=== PATIENT | male | born 1940 | race Caucasian/White ===

== ENCOUNTER → 2017-03-17 | Outpatient (CLI) | payer OTHER, MEDICARE ==
[2015-07-19 07:00] VITALS: BP 119/75
[~2017-03-17] MED LIST: ASPI-482 PO; BISO1TAB44 PO
--- NOTE | 2017-03-18 19:09 | CARD ---
APPROVED REPORT EXAM: Two-dimensional and M-mode echocardiogram with Doppler and color Doppler. Other Information Quality : Excellent INDICATION R/O Cardiomegaly 2D DIMENSIONS RVDd2.6 (2.9-3.5cm)Left Atrium(2D)4.1 (1.6-4.0cm) IVSd1.0 (0.7-1.1cm)Aortic Root(2D)3.5 (2.0-3.7cm) LVDd5.2 (3.9-5.9cm)LVOT Diameter2.2 (1.8-2.4cm) PWd1.0 (0.7-1.1cm)LVDs3.0 (2.5-4.0cm) FS (%) 30.0 %SV97.2 ml LVEF(%)60.0 (>50%) Aortic Valve AoV Peak Fernando.149.1cm/sAoV VTI38.6cm AO Peak GR.8.9mmHgLVOT Peak Fernando.114.6cm/s LVOT VTI 26.80cmAO Mean GR.5mmHg DAE (VMAX)2.16ci0IOG (VTI)2.68cm2 AI P 1/2 Vljc687xj Mitral Valve MV E Bojbothp48.7cm/sMV DECEL LAYV426om MV A Mgghnktr67.4cm/sMV RUA53ym E/A Ratio1.2MVA (PHT)2.92cm2 TDI E/Lateral E'5.7E/Medial E'7.0 Tricuspid Valve TR P. Ycmydsfz584wg/sRAP YJLGGNHV2siIx TR Peak Gr.93ipXhUQQS63pbGq Pulmonary Vein S1 Vxvqzuvo13.1cm/sD2 Mmkafgut06.8cm/s LEFT VENTRICLE The left ventricle is normal size. There is normal left ventricular wall thickness. The left ventricu lar systolic function is normal and the ejection fraction is 55-60%.. There is normal LV segmental wa ll motion. RIGHT VENTRICLE The right ventricle is normal size. The right ventricular systolic function is normal. ATRIA The left atrium is mildly dilated. The right atrium size is normal. The interatrial septum is intact with no evidence for an atrial septal defect or patent foramen ovale as noted on 2-D or Doppler imagi ng. AORTIC VALVE The aortic valve is mildly thickened but opens well. Doppler and Color Flow revealed moderate aortic regurgitation. There is no significant aortic valvular stenosis. MITRAL VALVE The mitral valve is normal in structure and function. There is no evidence of mitral valve prolapse. There is no mitral valve stenosis. Doppler and Color-flow revealed mild mitral regurgitation. TRICUSPID VALVE The tricuspid valve is normal in structure and function. Doppler and Color Flow revealed trace tricus pid regurgitation. The PA pressure was estimated at 25 mmHg. There is no tricuspid valve stenosis. PULMONIC VALVE The pulmonary valve is normal in structure and function. Doppler and Color Flow revealed mild pulmoni c valvular regurgitation. There is no pulmonic valvular stenosis. GREAT VESSELS The aortic root is normal in size. The ascending aorta is normal in size. The IVC is normal in size a nd collapses >50% with inspiration. PERICARDIAL EFFUSION There is no evidence of significant pericardial effusion. Critical Notification Critical Value: No <Conclusion> The left ventricle is normal size. There is normal left ventricular wall thickness. The left ventricular systolic function is normal and the ejection fraction is 55-60%.. The diastolic function is normal. There is no evidence of significant pericardial effusion There is no mitral stenosis and a mild mitral regurgitation. The left atrium is mildly enlarged. The aortic valve is tricuspid The valve leaflets are mildly thickened. There is no aotric stenosis amd a mild to moderate aortic regurgitation. The right ventricle is of a normal size with normal systolic function There is a trace tricuspid regurgitation The right ventricular systolic pressure is normal at 26 mm. Hg. Doppler and Color Flow revealed mild pulmonic valvular regurgitation.
== END | disposition home or self-care (01) ==
LOC: ECHO 10:55
PROVIDERS: ATTEND Physician Assistant Medical
DX: I08.3 Combined rheumatic disorders of mitral, aortic and tricuspid valves (principal)
CPT/HCPCS: 93306

== ENCOUNTER 2017-04-03 20:52 | Emergency (ER) | payer OTHER, MEDICARE ==
[~2017-04-03] VITALS: Ht 172.7 cm; Wt 81.6 kg
[2017-04-03 21:20] VITALS: BP 123/81
[2017-04-03] MEDS ORDERED: CETI10TA16 PO (22:01)
[2017-04-03] MEDS ORDERED: MELO-150 PO (22:01)
[2017-04-03 22:04] LABS: BASO % 0 % (0-3); EOS % 1 % (0-3); HEMATOCRIT 42.3 % (39.0-53.0); HEMOGLOBIN 14.6 g/dL (13.0-17.5); LYMPH # 0.4 x10^3/uL (1.0-4.8); LYMPH % 6 % (24-48); MEAN CORPUSCULAR HEMOGLOBIN 35 pg (25-35); MEAN CORPUSCULAR HGB CONC 35 g/dL (31-37); MEAN CORPUSCULAR VOLUME 102 fL (79-100); MONO % 9 % (0-9); NEUT % 83 % (31-73); PLATELET COUNT 99 x10^3/uL (140-400); RED BLOOD COUNT 4.14 x10^6/uL (4.30-5.70); RED CELL DISTRIBUTION WIDTH 12.4 % (11.5-14.5); WHITE BLOOD COUNT 6.9 x10^3/uL (4.0-11.0)
[2017-04-03 22:15] LABS: CALCIUM 8.4 mg/dL (8.5-10.1); CREATININE 0.7 mg/dL (0.7-1.3); GFR 109.9; POTASSIUM 3.9 mmol/L (3.5-5.1)
[2017-04-03 22:21] LABS: ALBUMIN 3.5 g/dL (3.4-5.0); ALBUMIN/GLOBULIN RATIO 0.9 (1.0-1.7); TOTAL BILIRUBIN 1.8 mg/dL (0.2-1.0); TOTAL PROTEIN 7.2 g/dL (6.4-8.2)
[2017-04-03 22:25] LABS: BILIRUBIN,URINE NEGATIVE (NEG); GLUCOSE,URINE NEGATIVE (NEG); NITRITE,URINE NEGATIVE (NEG); PROTEIN,URINE NEGATIVE (NEG-TRACE)
[2017-04-03 22:39] LABS: BACTERIA,URINE 0 /HPF (0-FEW); RBC,URINE 0 /HPF (0-2); SQUAMOUS EPITHELIAL CELL,UR OCC /LPF; WBC,URINE OCC /HPF (0-4)
--- NOTE | 2017-04-03 23:42 | ED.ADGEN ---
Past Medical History Past Medical History: Hypertension, TIA Past Surgical History: Cholecystectomy, Other Additional Past Surgical Histo: SURGERY ON BOTH HANDS AND ARMS Alcohol Use: Heavy Drug Use: None Adult General Chief Complaint Chief Complaint: WEAKNESS/GENERALIZED HPI HPI Patient is a 77 year old [man, stray of hypertension, TIA, who presents to the emergency department with complaint of fever, chills, generalized body aches and malaise, headache, that began this afternoon. 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 He states that he has an occasional cough that is nonproductive today, denies any sore throat, rhinorrhea, any nausea, vomiting, diarrhea, abdominal pain, pain with urination, flank pain. He states he is having muscle aches throughout his back, and a mild frontal headache, no ear pain, no vision changes , no lightheadedness or dizziness. He states that he had a temperature at home of 102 "point something". He states he took an Aleve at home about an hour prior to coming to the ED. States he is feeling weak all over, denies any focal weakness, numbness or tingling. Denies any similar to previously, states no known sick contacts or exposures but he is around the public every day all day. Review of Systems Review of Systems Constitutional: Fever, generalized malaise. Eyes: Denies change in visual acuity. [] HENT: Denies nasal congestion or sore throat. [] Respiratory: Occasional nonproductive cough, no shortness of breath. Cardiovascular: Denies chest pain or edema. [] GI: Denies abdominal pain, nausea, vomiting, bloody stools or diarrhea. [] : Denies dysuria. [] Musculoskeletal: Denies back pain or joint pain. [] Integument: Denies rash. [] Neurologic: Denies headache, focal weakness or sensory changes. [] Endocrine: Denies polyuria or polydipsia. [] Lymphatic: Denies swollen glands. [] Psychiatric: Denies depression or anxiety. [] Allergies Allergies Allergies Coded Allergies Type Severity Reaction Last Updated Verified No Known Drug Allergies 07/18/15 No Physical Exam Physical Exam Constitutional: Well developed, well nourished, no acute distress, non-toxic appearance. [] HENT: Normocephalic, atraumatic, bilateral external ears normal, oropharynx moist, no oral exudates, nose normal. [] Eyes: PERRLA, EOMI, conjunctiva normal, no discharge. [] Neck: Normal range of motion, no tenderness, supple, no stridor. [] Cardiovascular:Heart rate regular rhythm, no murmur S1, S2, rubs or gallops. [] Lungs & Thorax: Bilateral breath sounds clear to auscultation , wheezing, rhonchi, rales. No chest tenderness or crepitus. [] Abdomen: Bowel sounds normal, soft, no tenderness, no rebound, rigidity, no guarding, no masses, no pulsatile masses. [] Skin: Warm, dry, no erythema, no rash. [] Warm to touch. Back: No tenderness, no CVA tenderness. [] Extremities: No tenderness, no cyanosis, no clubbing, ROM intact, no edema. Negative Homans sign. [] Neurologic: Alert and oriented X 3, normal motor function, normal sensory function, no focal deficits noted. [] Psychologic: Affect normal, judgement normal, mood normal. [] Current Patient Data Vital Signs Vital Signs Date Time Temp Pulse Resp B/P (MAP) Pulse Ox O2 Delivery O2 Flow Rate FiO2 04/03/17 21:20 99.6 84 19 123/81 (95) 95 Room Air 99.6 Lab Values Laboratory Tests Test 04/03/17 21:32 04/03/17 22:15 White Blood Count 6.9 x10^3/uL (4.0-11.0) Red Blood Count 4.14 x10^6/uL (4.30-5.70) L Hemoglobin 14.6 g/dL (13.0-17.5) Hematocrit 42.3 % (39.0-53.0) Mean Corpuscular Volume 102 fL (79-100) H Mean Corpuscular Hemoglobin 35 pg (25-35) Mean Corpuscular Hemoglobin Concent 35 g/dL (31-37) Red Cell Distribution Width 12.4 % (11.5-14.5) Platelet Count 99 x10^3/uL (140-400) L Neutrophils (%) (Auto) 83 % (31-73) H Lymphocytes (%) (Auto) 6 % (24-48) L Monocytes (%) (Auto) 9 % (0-9) Eosinophils (%) (Auto) 1 % (0-3) Basophils (%) (Auto) 0 % (0-3) Neutrophils # (Auto) 5.8 x10^3uL (1.8-7.7) Lymphocytes # (Auto) 0.4 x10^3/uL (1.0-4.8) L Monocytes # (Auto) 0.6 x10^3/uL (0.0-1.1) Eosinophils # (Auto) 0.1 x10^3/uL (0.0-0.7) Basophils # (Auto) 0.0 x10^3/uL (0.0-0.2) Sodium Level 133 mmol/L (136-145) L Potassium Level 3.9 mmol/L (3.5-5.1) Chloride Level 99 mmol/L (98-107) Carbon Dioxide Level 22 mmol/L (21-32) Anion Gap 12 (6-14) Blood Urea Nitrogen 14 mg/dL (8-26) Creatinine 0.7 mg/dL (0.7-1.3) Estimated GFR (Cockcroft-Gault) 109.9 BUN/Creatinine Ratio 20 (6-20) Glucose Level 119 mg/dL (70-99) H Calcium Level 8.4 mg/dL (8.5-10.1) L Total Bilirubin 1.8 mg/dL (0.2-1.0) H Aspartate Amino Transferase (AST) 44 U/L (15-37) H Alanine Aminotransferase (ALT) 43 U/L (16-63) Alkaline Phosphatase 70 U/L (46-116) Troponin I Quantitative < 0.017 ng/mL (0.000-0.055) SW-Xre-T-Type Natriuretic Peptide 87 pg/mL (0-449) Total Protein 7.2 g/dL (6.4-8.2) Albumin 3.5 g/dL (3.4-5.0) Albumin/Globulin Ratio 0.9 (1.0-1.7) L Urine Collection Type Unknown Urine Color Yellow Urine Clarity Clear Urine pH 7.0 Urine Specific [place] 1.020 Urine Protein Negative mg/dL (NEG-TRACE) Urine Glucose (UA) Negative mg/dL (NEG) Urine Ketones (Stick) Negative mg/dL (NEG) Urine Blood Negative (NEG) Urine Nitrite Negative (NEG) Urine Bilirubin Negative (NEG) Urine Urobilinogen Dipstick 2.0 mg/dL (0.2 mg/dL) Urine Leukocyte Esterase Negative (NEG) Urine RBC 0 /HPF (0-2) Urine WBC Occ /HPF (0-4) Urine Squamous Epithelial Cells Occ /LPF Urine Transitional Epithelial Cells Occ /LPF Urine Renal Epithelial Cells Occ /LPF Urine Bacteria 0 /HPF (0-FEW) Urine Mucus Slight /LPF Laboratory Tests 04/03/17 21:32 Laboratory Tests 04/03/17 21:32 EKG EKG [] EC28/11/39: Sinus rhythm, heart rate 79 bpm, left axis deviation, QTC of 433, TN of 146, cures V2, no ST elevations or depressions, no evidence of acute ST abnormalities. As interpreted by me. Radiology/Procedures Radiology/Procedures Chest x-ray: One view: Normal cardiopulmonary silhouette, no infiltrates, no effusions, no pneumothorax, no soft tissue or bony abnormalities identified. As interpreted by me. [] Course & Med Decision Making Course & Med Decision Making Pertinent Labs and Imaging studies reviewed. (See chart for details) Patient with a temperature of 99.6 orally in the emergency department, as stated he did take Aleve prior to coming to the ED. Patient is complaining of generalized malaise and body aches, no neck pain or nuchal rigidity, no tenderness to palpation, -20 accentuation test, no focal chest or abdominal findings, no rashes, and no concerning exposure history. Chest x-ray is unremarkable, laboratory studies do not reveal any acutely concerning findings or evidence of systemic infection. Urinalysis unremarkable as well. I did review these findings with the patient, and reevaluation he states he is feeling much better, and that he is ready to be discharged home, is taking oral fluids in the ED without issue. Patient ambulated in the emergency department, ambulating without difficulty, states that the malaise and other symptoms are resolved after receiving naproxen. I did discuss with the patient that he may be experiencing a viral illness, we have not identified a cause for his symptoms , therefore for concerning symptoms as discussed at bedside, he returned the ED for additional evaluation. Patient voiced understanding and agreement with this plan, to follow-up with his primary care provider if symptoms do persist, and to return to the ED if any new or concerning symptoms develop. To continue to use acetaminophen and naproxen as needed as directed for symptoms. Instructed to push fluids and get plenty of rest. Patient discharged home with family in stable condition with medication precautions, discharge instructions and precautions, and plan as above. Dragon Disclaimer Dragon Disclaimer This electronic medical record was generated, in whole or in part, using a voice recognition dictation system. Departure Impression: Primary Impression: Fever Disposition: 01 HOME, SELF-CARE Condition: IMPROVED REECE MALDONADO DO April 03, 2017 23:42
--- NOTE | 2017-04-04 08:12 | RAD ---
EXAM: Chest, single view. HISTORY: Cough and fever. COMPARISON: 07/18/2015. FINDINGS: A frontal view the chest is obtained. There is no infiltrate, effusion or pneumothorax. The heart is normal in size. There are surgical clips within the right upper extremity. There are healed rib fractures. IMPRESSION: No acute pulmonary finding.
--- NOTE | 2017-04-04 13:15 | EKG ---
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
== END 2017-04-04 | disposition home or self-care (01) ==
LOC: ER 20:52
DX: R50.9 Fever, unspecified (principal); M79.1 Myalgia; R53.81 Other malaise; R51 Headache; R05 Cough; R53.1 Weakness; R09.89 Other specified symptoms and signs involving the circulatory and respiratory systems; R06.2 Wheezing; I10 Essential (primary) hypertension; Z86.73 Personal history of transient ischemic attack (TIA), and cerebral infarction without residual deficits; Z90.49 Acquired absence of other specified parts of digestive tract
CPT/HCPCS: 36415; 71010; 80053; 81001; 83880; 84484; 85027; 93005; 99285-25

== ENCOUNTER 2019-05-22 01:01 | Emergency (ER) | payer MEDICARE, OTHER ==
[~2019-05-22] VITALS: Ht 172.7 cm; Wt 79.4 kg
[~2019-05-22 01:01] MED LIST changes: +CETI10TA16 PO; +MELO15TA23 PO
[2019-05-22 02:04] LABS: BASO % 1 % (0-3); EOS # 0.6 x10^3/uL (0.0-0.7); EOS % 8 % (0-3); HEMOGLOBIN 14.2 g/dL (13.0-17.5); LYMPH # 1.8 x10^3/uL (1.0-4.8); LYMPH % 27 % (24-48); MEAN CORPUSCULAR HEMOGLOBIN 35 pg (25-35); MEAN CORPUSCULAR HGB CONC 35 g/dL (31-37); MEAN CORPUSCULAR VOLUME 102 fL (79-100); MONO # 1.2 x10^3/uL (0.0-1.1); MONO % 17 % (0-9); NEUT # 3.3 x10^3/uL (1.8-7.7); NEUT % 48 % (31-73); PLATELET COUNT 105 x10^3/uL (140-400); RED BLOOD COUNT 4.03 x10^6/uL (4.30-5.70); RED CELL DISTRIBUTION WIDTH 12.7 % (11.5-14.5); WHITE BLOOD COUNT 6.9 x10^3/uL (4.0-11.0)
[2019-05-22 02:12] LABS: BILIRUBIN,URINE NEGATIVE (NEG); CLARITY,URINE CLEAR; COLOR,URINE YELLOW; NITRITE,URINE NEGATIVE (NEG); PH,URINE 6.5; PROTEIN,URINE NEGATIVE (NEG-TRACE); UROBILINOGEN,URINE 0.2 mg/dL (0.2 mg/dL)
[2019-05-22 02:14] LABS: CALCIUM 8.4 mg/dL (8.5-10.1); CREATININE 0.6 mg/dL (0.7-1.3); GFR 130.6; POTASSIUM 3.9 mmol/L (3.5-5.1)
[2019-05-22 02:20] LABS: ALBUMIN 3.4 g/dL (3.4-5.0); TOTAL BILIRUBIN 1.3 mg/dL (0.2-1.0); TOTAL PROTEIN 6.9 g/dL (6.4-8.2)
[2019-05-22 02:20] LABS: BACTERIA,URINE 0 /HPF (0-FEW); RBC,URINE 0 /HPF (0-2); SQUAMOUS EPITHELIAL CELL,UR OCC /LPF; WBC,URINE OCC /HPF (0-4)
[2019-05-22] MEDS ORDERED: IOHEXOL 300 MG/ML 100ML VIAL. IV ONE (02:45)
[2019-05-22] MEDS ORDERED: CONTRAST GIVEN. MC PRN (02:45)
[2019-05-22] MEDS ORDERED: MORPHINE SULFATE 4 MG/ML VIAL. IV ONE (03:00)
[2019-05-22] MEDS ORDERED: ONDANSETRON PF 4 MG/2 ML VIAL. IV ONE (03:00)
--- NOTE | 2019-05-22 03:03 | PHYS DOC ---
Past Medical History Past Medical History: Hypertension, TIA Past Surgical History: Cholecystectomy, Other Additional Past Surgical Histo: SURGERY ON BOTH HANDS AND ARMS Alcohol Use: None Drug Use: None Adult General Chief Complaint Chief Complaint: ABDOMINAL PAIN HPI HPI Patient is a 79 year old male who presents acute onset right lower quadrant pain/tenderness starting 3 hours prior to ED arrival. Pain is described as sharp, nonradiating is rated moderate to severe. Pain is worse with palpation and movement is partially relieved with position of rest. No fever chills, nausea vomiting or sweats. Reports good appetite. Previous right hernia repair. No other acute symptoms or complaints.[] Review of Systems Review of Systems Review symptoms as per history of present illness. All other review symptoms are negative. All other systems were reviewed and found to be within normal limits, except as documented in this note. Current Medications Current Medications Current Medications Medications (Trade) Dose Ordered Sig/Cricket Start Time Stop Time Status Last Admin Dose Admin Info (CONTRAST GIVEN -- Rx MONITORING) 1 each PRN DAILY PRN 05/22/19 02:45 05/24/19 02:44 Iohexol (Omnipaque 300 Mg/ml) 75 ml 1X ONCE 05/22/19 02:45 05/22/19 02:46 DC 05/22/19 02:43 75 ML Morphine Sulfate (Morphine Sulfate) 4 mg 1X ONCE 05/22/19 03:00 05/22/19 03:01 DC 05/22/19 03:01 4 MG Ondansetron HCl (Zofran) 4 mg 1X ONCE 05/22/19 03:00 05/22/19 03:01 DC 05/22/19 03:00 4 MG Allergies Allergies Allergies Coded Allergies Type Severity Reaction Last Updated Verified No Known Drug Allergies 07/18/15 No Physical Exam Physical Exam Constitutional: Well developed, well nourished, no acute distress, non-toxic appearance. [] HENT: Normocephalic, atraumatic, bilateral external ears normal, oropharynx moist, no oral exudates, nose normal. [] Eyes: PERRLA, EOMI, conjunctiva normal, no discharge. [] Neck: Normal range of motion, no tenderness, supple, no stridor. [] Cardiovascular:Heart rate regular rhythm, no murmur [] Lungs & Thorax: Bilateral breath sounds clear to auscultation [] Abdomen: Bowel sounds normal, soft, right lower quadrant pain, tenderness with voluntary guarding.[] Skin: Warm, dry. [] Back: No tenderness, no CVA tenderness. [] Extremities: No tenderness, no cyanosis, no clubbing, ROM intact, no edema. [] Neurologic: Alert and oriented X 3, normal motor function, normal sensory function, no focal deficits noted. [] Psychologic: Affect normal, judgement normal, mood normal. [] Current Patient Data Vital Signs Vital Signs Date Time Temp Pulse Resp B/P (MAP) Pulse Ox O2 Delivery O2 Flow Rate FiO2 05/22/19 03:01 18 98 Room Air 05/22/19 01:52 97.9 64 146/78 (100) 97.9 Lab Values Laboratory Tests Test 05/22/19 01:04 05/22/19 01:20 Urine Collection Type Unknown Urine Color Yellow Urine Clarity Clear Urine pH 6.5 Urine Specific [place] <=1.005 Urine Protein Negative mg/dL (NEG-TRACE) Urine Glucose (UA) Negative mg/dL (NEG) Urine Ketones (Stick) Negative mg/dL (NEG) Urine Blood Negative (NEG) Urine Nitrite Negative (NEG) Urine Bilirubin Negative (NEG) Urine Urobilinogen Dipstick 0.2 mg/dL (0.2 mg/dL) Urine Leukocyte Esterase Negative (NEG) Urine RBC 0 /HPF (0-2) Urine WBC Occ /HPF (0-4) Urine Squamous Epithelial Cells Occ /LPF Urine Bacteria 0 /HPF (0-FEW) White Blood Count 6.9 x10^3/uL (4.0-11.0) Red Blood Count 4.03 x10^6/uL (4.30-5.70) L Hemoglobin 14.2 g/dL (13.0-17.5) Hematocrit 41.0 % (39.0-53.0) Mean Corpuscular Volume 102 fL (79-100) H Mean Corpuscular Hemoglobin 35 pg (25-35) Mean Corpuscular Hemoglobin Concent 35 g/dL (31-37) Red Cell Distribution Width 12.7 % (11.5-14.5) Platelet Count 105 x10^3/uL (140-400) L Neutrophils (%) (Auto) 48 % (31-73) Lymphocytes (%) (Auto) 27 % (24-48) Monocytes (%) (Auto) 17 % (0-9) H Eosinophils (%) (Auto) 8 % (0-3) H Basophils (%) (Auto) 1 % (0-3) Neutrophils # (Auto) 3.3 x10^3/uL (1.8-7.7) Lymphocytes # (Auto) 1.8 x10^3/uL (1.0-4.8) Monocytes # (Auto) 1.2 x10^3/uL (0.0-1.1) H Eosinophils # (Auto) 0.6 x10^3/uL (0.0-0.7) Basophils # (Auto) 0.0 x10^3/uL (0.0-0.2) Sodium Level 135 mmol/L (136-145) L Potassium Level 3.9 mmol/L (3.5-5.1) Chloride Level 99 mmol/L (98-107) Carbon Dioxide Level 24 mmol/L (21-32) Anion Gap 12 (6-14) Blood Urea Nitrogen 10 mg/dL (8-26) Creatinine 0.6 mg/dL (0.7-1.3) L Estimated GFR (Cockcroft-Gault) 130.6 BUN/Creatinine Ratio 17 (6-20) Glucose Level 103 mg/dL (70-99) H Lactic Acid Level 1.4 mmol/L (0.4-2.0) Calcium Level 8.4 mg/dL (8.5-10.1) L Total Bilirubin 1.3 mg/dL (0.2-1.0) H Aspartate Amino Transferase (AST) 53 U/L (15-37) H Alanine Aminotransferase (ALT) 43 U/L (16-63) Alkaline Phosphatase 103 U/L (46-116) Troponin I Quantitative < 0.017 ng/mL (0.000-0.055) Total Protein 6.9 g/dL (6.4-8.2) Albumin 3.4 g/dL (3.4-5.0) Albumin/Globulin Ratio 1.0 (1.0-1.7) Lipase 249 U/L (73-393) Laboratory Tests 05/22/19 01:20 Laboratory Tests 05/22/19 01:20 EKG EKG [] Radiology/Procedures Radiology/Procedures [] Course & Med Decision Making Course & Med Decision Making Pertinent Labs and Imaging studies reviewed. (See chart for details) [CT abd/pelvis no acute findings, labs benign, pain resolved. Recommend watchful waiting and PCP follow-up. Return precautions reviewed.] Mark Disclaimer Mark Disclaimer This electronic medical record was generated, in whole or in part, using a voice recognition dictation system. Departure Departure Impression: Primary Impression: Lower abdominal pain Disposition: HOME, SELF-CARE Condition: GOOD Referrals: MARTHA REYES MD (PCP) Patient Instructions: Abdominal Pain (Nonspecific) Additional Instructions: Please follow-up with your PCP for reevaluation. Return to the ED if new or worsening symptoms LALIT SARABIA DO May 22, 2019 03:03
--- NOTE | 2019-05-22 03:34 | RAD ---
CT scan of the abdomen and pelvis with contrast 05/22/2019 CLINICAL HISTORY: Right lower quadrant abdominal pain. TECHNIQUE: After the intravenous administration of 75 cc of Omnipaque 300, contiguous, 5 mm axial sections were obtained through the abdomen and pelvis. One or more of the following individualized dose reduction techniques were utilized for this study: 1. Automated exposure control. 2. Adjustment of the mA and/or kV according to patient size. 3. Use of iterative reconstruction technique. FINDINGS: Images through the lung bases demonstrate mild cardiomegaly. Minimal dependent subsegmental atelectasis is seen bilaterally. The liver parenchyma has a decreased attenuation consistent with fatty infiltration. The spleen, pancreas, adrenal glands and kidneys are within normal limits. Atherosclerotic calcification of the abdominal aorta is seen. The abdominal aorta tapers normally. Surgical clips are seen within the ulnar fossa consistent with a cholecystectomy. Air and stool seen throughout the colon. There is no evidence of bowel obstruction. The appendix is not visualized. No inflammatory changes are seen surrounding the cecum. Images through the pelvis demonstrate the urinary bladder distended with urine. The prostate gland is enlarged likely related to BPH. Surgical clips are seen within the right inguinal region. No free fluid is seen. Multiple diverticula are seen involving the sigmoid colon. No inflammatory changes are seen adjacent fat. Degenerative changes are seen involving the lower thoracic and throughout the lumbar spine along with both hips. IMPRESSION: No acute abnormality is seen. Electronically signed by: Timmy Steven MD (05/22/2019 3:32 AM) [facility]
[2019-05-22 05:00] VITALS: BP 119/71
--- NOTE | 2019-05-22 12:01 | EKG ---
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
== END 2019-05-22 05:00 | disposition home or self-care (01) ==
LOC: ER 02:39
DX: R10.31 Right lower quadrant pain (principal); I10 Essential (primary) hypertension; Z86.73 Personal history of transient ischemic attack (TIA), and cerebral infarction without residual deficits; Z90.49 Acquired absence of other specified parts of digestive tract
CPT/HCPCS: 36415; 74177; 80053; 81001; 83605; 83690; 84484; 85025; 93005; 96374; 96375; 99285; J2270; J2405; Q9967

== ENCOUNTER → 2019-07-07 | Outpatient (CLI) | payer MEDICARE ==
--- NOTE | 2019-07-07 09:33 | CARD ---
MR#: [id number] Date of Study: 07/07/2019 Ordering Physician: MARTHA REYES, Referring Physician: MARTHA REYES Tech: Marita Ayers RDCS APPROVED REPORT EXAM: Two-dimensional and M-mode echocardiogram with Doppler and color Doppler. Other Information Quality : GoodHR: 65bpm Rhythm : NSR INDICATION Murmur 2D DIMENSIONS RVDd3.2 (2.9-3.5cm)Left Atrium(2D)4.1 (1.6-4.0cm) IVSd1.1 (0.7-1.1cm)Aortic Root(2D)3.6 (2.0-3.7cm) LVDd4.2 (3.9-5.9cm)LVOT Diameter2.3 (1.8-2.4cm) PWd1.0 (0.7-1.1cm)LVDs2.6 (2.5-4.0cm) FS (%) 37.8 %SV53.3 ml LVEF(%)68.3 (>50%) M-Mode DIMENSIONS Left Atrium(MM)3.85 (2.5-4.0cm)Aortic Root3.78 (2.2-3.7cm) Aortic Valve AoV Peak Fernando.178.2cm/sAoV VTI40.5cm AO Peak GR.12.7mmHgLVOT Peak Fernando.108.6cm/s AO Mean GR.6mmHgAVA (VMAX)2.48cm2 DAE (VTI)2.50ho2MD P 1/2 Caop877os Mitral Valve MV E Lxixweqn87.1cm/sMV DECEL GBCX606ys MV A Oirvejeu18.5cm/sE/A Ratio0.9 Pulmonary Valve PV Peak Xvhjygad944.4cm/s Tricuspid Valve TR P. Fjsenjop252at/sRAP ZEXGUQWG2kxUc TR Peak Gr.07xoQlZJOE92vmCq Pulmonary Vein S1 Icictdvo33.4cm/sD2 Ehajmqdy41.0cm/s PVa zcfhlyus539aenl LEFT VENTRICLE The left ventricle is normal size. Proximal septal thickening is noted. The left ventricular systolic function is normal and the ejection fraction is within normal range. The Ejection Fraction is 60-65% . There is normal LV segmental wall motion. Transmitral Doppler flow pattern is Grade I-abnormal rela xation pattern. RIGHT VENTRICLE The right ventricle is normal size. There is normal right ventricular wall thickness. The right ventr icular systolic function is normal. ATRIA The left atrium is mildly dilated. The right atrium size is normal. The interatrial septum is intact with no evidence for an atrial septal defect or patent foramen ovale as noted on 2-D or Doppler imagi ng. AORTIC VALVE The aortic valve is trileaflet. The aortic valve is mildly calcified. Doppler and Color Flow revealed moderate aortic regurgitation. There is no significant aortic valvular stenosis. There is no aortic valvular vegetation. MITRAL VALVE The mitral valve is normal in structure and function. There is no evidence of mitral valve prolapse. There is no mitral valve stenosis. Doppler and Color-flow revealed mild mitral regurgitation. TRICUSPID VALVE The tricuspid valve is normal in structure and function. Doppler and Color Flow revealed trace tricus pid regurgitation. The PA pressure was estimated at 22 mmHg. There is no tricuspid valve prolapse or vegetation. There is no tricuspid valve stenosis. PULMONIC VALVE Doppler and Color Flow revealed mild pulmonic valvular regurgitation. There is no pulmonic valvular s tenosis. GREAT VESSELS The aortic root is normal in size. The ascending aorta is normal in size. The IVC is normal in size a nd collapses >50% with inspiration. PERICARDIAL EFFUSION There is no evidence of significant pericardial effusion. Critical Notification Critical Value: No <Conclusion> The left ventricular systolic function is normal and the ejection fraction is within normal range. Th e Ejection Fraction is 60-65%. There is normal LV segmental wall motion. Doppler and Color Flow revealed moderate aortic regurgitation. Signed by : Steven Lagos, Electronically Approved : 07/07/2019 09:32:53
== END | disposition home or self-care (01) ==
LOC: ECHO 08:36
PROVIDERS: ATTEND Family Medicine
DX: I34.0 Nonrheumatic mitral (valve) insufficiency (principal); G45.9 Transient cerebral ischemic attack, unspecified; R01.1 Cardiac murmur, unspecified
CPT/HCPCS: 93306

== ENCOUNTER → 2019-10-12 | Outpatient (CLI) | payer MEDICARE ==
[~2019-10-12] MED LIST changes: +GADOTERATE 5 MMOL/10ML VIAL. IVP ONE
--- NOTE | 2019-10-12 13:55 | KCIC ---
MRI abdomen with and without contrast dated 10/12/2019. Comparison made to CT dated 05/22/2019. CLINICAL INDICATION: Cirrhosis and right-sided abdominal pain. TECHNIQUE: Routine multiplanar multisequence MR imaging of the abdomen performed with and without the administration of 16 cc Dotarem FINDINGS: The liver is heterogeneous in signal and nodular in contour. There is a nodular focus within the peripheral aspect of the right lobe liver near the junction of segments 7 and 8 that shows avid hyperenhancement on series 9 image 19. This measures 1.2 cm maximum dimension with some persistent hyperenhancement on the portal venous phase and no significant washout or enhancing capsule on the delayed images. Second nodule with vague T2 hyperintensity at the hepatic dome near the junction of segments 4A and 2 measures 2.3 cm maximum dimension and is hyperintense in signal on the T1 precontrast images. The lesion shows hyperenhancement on the arterial phase with vague persistent enhancement on the portal venous phase and vague central washout or nonenhancement that persists on the delayed images. No additional areas of abnormal enhancement or mass. No definite diffusion restriction. The biliary tree is normal in caliber. No filling defect or stricture. The portal vein is patent. Gallbladder is surgically absent. Spleen is upper limits of normal in size. 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 Pancreas, adrenal glands and kidneys are unremarkable. No localized adenopathy or ascites. IMPRESSION: 1. Heterogeneous nodular liver consistent with history of cirrhosis. 2. There is a indeterminate lesion within the hepatic dome shows questionable central washout on the delayed images and precontrast T1 hyperintensity and mild arterial hyperenhancement. Early hepatocellular carcinoma cannot be excluded (LI-RADS Category 4). Suggest correlation with alpha-fetoprotein values and to 3 month follow-up imaging to ensure stability. 3. There is an additional hyperenhancing lesion at the peripheral right lobe liver with no appreciable washout or enhancing capsule. This is intermediate probability for HCC (LI-RADS category 3). This should also be followed on subsequent exams. 4. Status post cholecystectomy. Electronically signed by: Dwain Cowan MD (10/12/2019 1:52 PM) [id number]
== END | disposition home or self-care (01) ==
LOC: KCIC MRI 11:18
PROVIDERS: ATTEND Internal Medicine Gastroenterology
DX: K76.89 Other specified diseases of liver (principal); Z90.49 Acquired absence of other specified parts of digestive tract
CPT/HCPCS: 74183; 82565; A9575

== ENCOUNTER → 2019-12-02 | Outpatient (CLI) | payer MEDICARE ==
[~2019-12-02] MED LIST changes: -GADOTERATE 5 MMOL/10ML VIAL. IVP ONE
--- NOTE | 2019-12-02 17:20 | KCIC ---
Limited ultrasound of the right lower quadrant of the abdomen 12/02/2019 CLINICAL HISTORY: Right lower quadrant abdominal pain. TECHNIQUE: A real-time ultrasound examination of the anterior abdominal wall within the right lower quadrant of the abdomen in the area of the patient's pain was performed. Multiple images were obtained. FINDINGS: A small defect is seen within the anterior abdominal wall which measures 1.8 cm in greatest diameter. This is consistent with a ventral hernia. This corresponds to the patient's pain. IMPRESSION: 1.8 cm ventral hernia is seen as discussed above. Electronically signed by: Timmy Steven MD (12/02/2019 5:18 PM) [facility]
== END | disposition home or self-care (01) ==
LOC: KCIC US 09:50
PROVIDERS: ATTEND Family Medicine
DX: K43.9 Ventral hernia without obstruction or gangrene (principal)
CPT/HCPCS: 76705

== ENCOUNTER → 2019-12-20 | Outpatient (CLI) | payer MEDICARE ==
[~2019-12-20] MED LIST changes: +ATOR10TA60 PO; +HYDR-2761 PO
[2019-12-20 14:00] LABS: BASO % 1 % (0-3); EOS # 0.4 x10^3/uL (0.0-0.7); EOS % 9 % (0-3); HEMATOCRIT 41.6 % (39.0-53.0); HEMOGLOBIN 14.2 g/dL (13.0-17.5); LYMPH # 1.1 x10^3/uL (1.0-4.8); LYMPH % 25 % (24-48); MEAN CORPUSCULAR HEMOGLOBIN 35 pg (25-35); MEAN CORPUSCULAR HGB CONC 34 g/dL (31-37); MEAN CORPUSCULAR VOLUME 102 fL (79-100); MONO # 0.6 x10^3/uL (0.0-1.1); MONO % 15 % (0-9); NEUT # 2.2 x10^3/uL (1.8-7.7); NEUT % 51 % (31-73); PLATELET COUNT 103 x10^3/uL (140-400); RED BLOOD COUNT 4.06 x10^6/uL (4.30-5.70); RED CELL DISTRIBUTION WIDTH 13.3 % (11.5-14.5); WHITE BLOOD COUNT 4.3 x10^3/uL (4.0-11.0)
[2019-12-20 14:09] LABS: PROTHROMBIN TIME PATIENT 14.3 SEC (11.7-14.0)
[2019-12-20 14:25] LABS: ALBUMIN 3.2 g/dL (3.4-5.0); ALBUMIN/GLOBULIN RATIO 0.9 (1.0-1.7); CALCIUM 9.2 mg/dL (8.5-10.1); CREATININE 0.7 mg/dL (0.7-1.3); GFR 109.4; POTASSIUM 4.1 mmol/L (3.5-5.1); TOTAL BILIRUBIN 1.4 mg/dL (0.2-1.0); TOTAL PROTEIN 6.8 g/dL (6.4-8.2)
== END | disposition home or self-care (01) ==
LOC: SURGPAT 13:21
PROVIDERS: ATTEND Surgery
DX: Z01.818 Encounter for other preprocedural examination (principal); K43.9 Ventral hernia without obstruction or gangrene
CPT/HCPCS: 36415; 80053; 85025; 85610; 85730

== ENCOUNTER 2019-12-22 08:53 | Observation (INO) | payer MEDICARE ==
[~2019-12-22 08:53] MED LIST changes: -HYDR-2761 PO; +HYDROmorphone 2 MG/ML VIAL IV PRN; +IV RINGERS,LACTATED 1000ML 1,000 ML IV SCH; +LIDOCAINE 1% PF 2 ML VIAL. ID PRN; +MORPHINE SULFATE 2 MG/ML VIAL. IV PRN; +ONDANSETRON PF 4 MG/2 ML VIAL. IV PRN; +PROCHLORPERAZINE 10 MG/2 ML VIAL. IV PRN; +fentaNYL PF VIAL 100 MCG/2 ML VIAL IV PRN
[2019-12-22] MEDS ORDERED: NEOSTIGMINE METHYLSULFATE 5 MG/5 ML SYRINGE. ONE (09:52)
[2019-12-22] MEDS ORDERED: fentaNYL PF VIAL 100 MCG/2 ML VIAL ONE (09:52)
[2019-12-22] MEDS ORDERED: SEVOFLURANE 61 TO 120 MINUTES. IH ONE (09:52)
[2019-12-22] MEDS ORDERED: MIDAZOLAM HCL/PF 2 MG/2 ML VIAL. ONE (09:52)
[2019-12-22] MEDS ORDERED: ROCURONIUM 50 MG/5 ML VIAL. ONE (09:52)
[2019-12-22] MEDS ORDERED: PROPOFOL 20 ML IV ONE (09:53)
[2019-12-22] MEDS ORDERED: GLYCOPYRROLATE 1 MG/5 ML VIAL. ONE (09:53)
[2019-12-22] MEDS ORDERED: ONDANSETRON PF 4 MG/2 ML VIAL. ONE (09:53)
[2019-12-22] MEDS ORDERED: LIDOCAINE 2% PF 5 ML VIAL. ONE (09:53)
[2019-12-22] MEDS ORDERED: KETOROLAC 30 MG/ML VIAL. ONE (09:53)
[2019-12-22] MEDS ORDERED: DEXAMETHASONE SOD PHOS 4 MG/ML VIAL ONE (09:53)
[2019-12-22] MEDS ORDERED: ceFAZolin 2GM PREMIX 2 GM/50 ML BAG IV ONE (10:00)
[2019-12-22] MEDS ORDERED: ePHEDrine PF IN SALINE 50 MG/10 ML SYRINGE. IV ONE (10:37)
[2019-12-22] MEDS ORDERED: BUPIVACAINE-EPI 0.5%-1:200000 MPF 30 ML VIAL. ONE (11:38)
--- NOTE | 2019-12-22 12:03 | PDOC4 ---
Operative Note Operative Note Operative Note: Preoperative Diagnosis: Ventral hernia Postoperative Diagnosis: Spigelian hernia Procedure: Repair of Spigelian hernia with mesh Surgeon: Rell Covered Buckle Assembler: Feliz BEST Anesthesia: Gen. EBL: 10 mL Specimen: None Drains: None Complications: None Indication: The patient is a 79-year-old male presented with right lower quadrant pain. His evaluation included a sonogram and CT scan which showed a right lower quadrant ventral hernia. We offered surgical treatment with repair of the hernia and placement of mesh. The risks of surgery were discussed which include bleeding, infection, recurrence, pain, anesthetic risk, mesh reaction, potential need for additional surgery or procedure. He understands and would like to proceed. Description: The patient was taken to the operating room and placed supine on the operating table. Gen. anesthesia was performed. The abdomen was prepped with ChloraPrep and draped in a standard surgical manner. An incision was made in the right lower quadrant overlying the expected location of the hernia. Cautery di ssection was carried down to the external oblique aponeurosis. The external oblique was intact. The external oblique was then opened exposing a defect in the transversus and internal layers, consistent with a Spigelian hernia. The edges of the hernia defect were delineated. Some of the extruded fat was reduced and the defect filled with an extra large Phasix mesh plug. The mesh was sutured into position with 2-0 Vicryl. The fascial edges were closed over the mesh with 0 Prolene sutures. A Prolene onlay mesh was then placed on the internal oblique covering the repair. This was secured to the internal oblique with 2-0 Vicryl sutures. The external oblique was closed over the mesh with 2-0 Vicryl. The subcutaneous tissues closed with 3-0 Vicryl. The skin was closed with 4-0 Monocryl. The incision was infiltrated with half percent Marcaine with epinephrine. Steri-Strips and a sterile dressing were applied. The patient tolerated the procedure well and was sent to the recovery room in stable condition. At the end of the case all counts were correct. HORACE MONTGOMERY MD Dec 22, 2019 12:03
[2019-12-22] MEDS: fentaNYL PF VIAL 100 MCG/2 ML VIAL IV PRN ×2 (12:16→12:30)
[2019-12-22] MEDS ORDERED: IV NORMAL SALINE 1000ML BAG 1,000 ML IV SCH (12:18)
[2019-12-22] MEDS ORDERED: NALOXONE 0.4 MG/ML VIAL. IV PRN (12:30)
[2019-12-22] MEDS ORDERED: HYDROcodone/APAP 5/325MG 1 TAB TABLET PO PRN (12:30)
[2019-12-22] MEDS ORDERED: 0.9 % SODIUM CHLORIDE 10 ML DISP.SYRIN. IV PRN (12:30)
[2019-12-22] MEDS ORDERED: ONDANSETRON PF 4 MG/2 ML VIAL. IVP PRN (12:30)
[2019-12-22] MEDS: IV 1/2 NORMAL SALINE 1,000 ML IV SCH (13:00)
[2019-12-22] MEDS: HYDROcodone/APAP 5/325MG 1 TAB TABLET PO PRN ×2 (13:28→18:18)
[2019-12-22 15:00] VITALS: BP_SYST 120; BP_SYST 124; BP_DIAS 46; BP_DIAS 72
[2019-12-22] MEDS: HYDROmorphone 2 MG/ML VIAL IV PRN ×5 (15:11→23:55)
[2019-12-22 19:00] VITALS: BP 109/69
[2019-12-22 23:55] VITALS: BP 119/62
[2019-12-23] MEDS: HYDROcodone/APAP 5/325MG 1 TAB TABLET PO PRN ×2 (00:43→05:59)
[2019-12-23] MEDS: HYDROmorphone 2 MG/ML VIAL IV PRN ×4 (00:51→06:00)
[2019-12-23 03:40] VITALS: BP 129/72
[2019-12-23] MEDS: IV 1/2 NORMAL SALINE 1,000 ML IV SCH (05:40)
[2019-12-23 07:00] VITALS: BP 126/75
[2019-12-23 08:37] VITALS: BP 126/75
[2019-12-23] MEDS ORDERED: ASPIRIN ENTERIC COATED 81 MG TABLET.DR. PO SCH (09:00)
[2019-12-23] MEDS ORDERED: ATORVASTATIN CALCIUM 10 MG TABLET. PO SCH (09:00)
[2019-12-23] MEDS ORDERED: ATENOLOL 25 MG TABLET. PO SCH (09:00)
[2019-12-23] MEDS ORDERED: MELOXICAM 7.5 MG TABLET PO SCH (09:00)
[2019-12-23] MEDS ORDERED: hydroCHLOROthiazide 25 MG TABLET PO SCH (09:00)
[2019-12-23] MEDS ORDERED: HYDR-2761 PO (09:10)
--- NOTE | 2019-12-23 09:13 | DISCH ---
DISCHARGE INSTRUCTIONS Condition on Discharge Condition on Discharge: Stable Activity After Discharge Activity Instructions for Disc: Progressive ambulation Lifting Instructions after Dis: No heavy lifting, No pulling or pushing (20 lbs) Driving Instructions after Dis: Do not drive (while taking pain medication ) Diet after Discharge Diet after Discharge: Regular Wound Incision Care Wound/Incision Care: Ice to area for comfort, May get incision wet, No wound care needed Contacting the DRTheresa after DC Call your doctor for: Concerns you may have Follow-Up Follow up with: Dr Zacarias 2 weeks, call to schedule [phone] Treatment/Equipment after DC Adaptive Equipment Issued: None LINSEY MANN APRN Dec 23, 2019 09:13
--- NOTE | 2019-12-23 09:15 | PDOC ---
SURGICAL PROGRESS NOTE Subjective tolerating diet pain managed ambulating urinating Vital Signs Vital Signs Date Time Temp Pulse Resp B/P (MAP) Pulse Ox O2 Delivery O2 Flow Rate FiO2 12/23/19 08:37 78 126/75 12/23/19 07:00 98.1 16 98 Room Air 98.1 12/22/19 15:11 10.0 I&O Intake and Output 12/23/19 07:00 Intake Total 1280 ml Output Total 480 ml Balance 800 ml Intake Oral 380 ml IV Total 900 ml Output Urine Total 470 ml Estimated Blood Loss 10 ml # Voids 3 General: Alert, Oriented X3, Cooperative Abdomen: Soft, Other (groin incision ecchymosis) Assessment/Plan dc home FU 2 weeks no lifting LINSEY MANN APRN Dec 23, 2019 09:15
--- NOTE | 2019-12-23 09:17 | PDOC3 ---
Discharge Summary Visit Information Date of Admission: Dec 22, 2019 Date of Discharge: Dec 23, 2019 Admitting Diagnosis: ventral hernia Final Diagnosis Spigelian hernia Brief Hospital Course Allergies Allergies Coded Allergies Type Severity Reaction Last Updated Verified No Known Drug Allergies 12/22/19 No Vital Signs Vital Signs Date Time Temp Pulse Resp B/P (MAP) Pulse Ox O2 Delivery O2 Flow Rate FiO2 12/23/19 08:37 78 126/75 12/23/19 07:00 98.1 16 98 Room Air 98.1 12/22/19 15:11 10.0 Brief Hospital Course Mr. Hdez is a 79 old male who underwent Repair of Spigelian hernia with mesh. Postoperatively tolerating diet, ambulating, and pain managed. Ready for discharge home Discharge Information Condition at Discharge: Stable Follow Up: Weeks (2) Disposition/Orders: D/C to Home Scheduled Aspirin (Aspir 81) 81 Mg Tablet., 1 TAB PO DAILY, #30 Ref 5 Prescribed by: MARTHA REYES on 07/19/15 0852 Last Taken: Unknown Dose on 12/16/19 Last Action: Continued on 12/22/19 1221 by HORACE MONTGOMERY Atorvastatin Calcium (Atorvastatin Calcium) 10 Mg Tablet, 1 TAB PO DAILY for CHOLESTEROL, #30 Ref 5 (Reported) Entered as Reported by: SATNAM CHO on 12/20/19 1340 Last Taken: Unknown Dose on 12/21/19 Last Action: Continued on 12/22/19 1221 by HORACE MONTGOMERY Bisoprolol Fumarate/Hctz (Ziac 2.5-6.25 Mg Tablet) 1 Each Tablet, 1 TAB PO DAILY, #30 Ref 5 (Reported) Entered as Reported by: NINO SMYTH RN on 07/18/15 1747 Last Taken: Unknown Dose on 12/22/19 0800 Last Action: Converted on 12/22/19 1221 by HORACE MONTGOMERY Meloxicam (Meloxicam) 15 Mg Tablet, 1 TAB PO DAILY, #30 Ref 2 (Reported) Entered as Reported by: KAITLIN GARY on 04/03/17 2201 Last Taken: Unknown Dose on 12/20/19 Last Action: Converted on 12/22/19 1221 by HORACE MONTGOMERY Scheduled PRN Hydrocodone Bit/Acetaminophen (Hydrocodone-Apap 5-325 ) 1 Tab Tablet, 1 TAB PO PRN Q4HRS PRN for MILD PAIN 1-3, #30 Ref 0 Prescribed by: Linsey Cordova on 12/23/19 0910 Discontinued Medications Cetirizine Hcl (Cetirizine Hcl) 10 Mg Tablet, 1 TAB PO DAILY, #30 Ref 5 (Reported) Entered as Reported by: KAITLIN GARY on 04/03/172200 LINSEY CORDOVA APRN Dec 23, 2019 09:17
--- NOTE | 2019-12-23 11:15 | NUR ---
SW following. Discussed with RN, pt is from home alone. RN advised no SW needs, pt is discharging home with self care.
--- NOTE | 2019-12-23 12:33 | NUR ---
Discharge instructions given. Answered questions and concerns. Verbalized understanding. Pt discharged home accompanied by son.
== END 2019-12-23 12:35 | disposition home or self-care (01) ==
LOC: SURG 08:53 → 4 NORTH 12:27
PROVIDERS: ADMIT Surgery; ATTEND Surgery
DX: K43.9 Ventral hernia without obstruction or gangrene (principal); Z79.82 Long term (current) use of aspirin
CPT/HCPCS: 49590; 96374; 96376; A7015; C1713; C1781; G0378; G0379; J0171; J0696; J1100; J1170; J2001; J2250; J2405; J2704; J2710; J3010; J3490; J7120; J1885